=== PATIENT | female | born 1985 | race Caucasian/White ===

== ENCOUNTER → 2016-02-15 | Outpatient (CLI) | payer BC ==
[2016-02-15 13:43] LABS: BASO % 0.6 % (0.0-1.0); EOS # 0.2 K/mm3 (0.0-0.50); EOS % 3.6 % (0.0-3.0); LARGE UNSTAINED CELL # 0.1 K/mm3 (0.0-0.4); LARGE UNSTAINED CELL % 2.1 % (0.0-4.0); LYMPH % 17.4 % (24.0-44.0); MEAN CORPUSCULAR HEMOGLOBIN 32.1 pg (27.0-33.0); MEAN CORPUSCULAR HGB CONC 33.9 g/dl (32.0-36.5); MEAN CORPUSCULAR VOLUME 94.5 fl (80.0-96.0); MONO # 0.5 K/mm3 (0.0-0.8); NEUTROPHILS % 68.3 % (36.0-66.0); PLATELET COUNT, AUTOMATED 278 k/mm3 (150-450); RED CELL DISTRIBUTION WIDTH 11.9 % (11.5-14.5); WHITE BLOOD COUNT 5.9 K/mm3 (4.0-10.0)
[2016-02-15 14:08] LABS: HBsAg Prenatal NEGATIVE (NEGATIVE)
[2016-02-16 12:36] LABS: CONTROL LINE INT CTR LINE PRESENT; HIV SCRN NEGATIVE (NEGATIVE); HIV SCRN1 NEGATIVE (NEGATIVE)
== END ==
LOC: M SMT 09:22
PROVIDERS: ATTEND Advanced Practice Midwife
DX: Z34.81 Encounter for supervision of other normal pregnancy, first trimester (principal)

== ENCOUNTER → 2016-04-18 | Outpatient (REF) | payer BC | LOC: M LAB REF 12:43 | PROVIDERS: ATTEND Advanced Practice Midwife | DX: Z34.82 Encounter for supervision of other normal pregnancy, second trimester (principal) ==

== ENCOUNTER → 2016-04-25 | Outpatient (CLI) | payer BC ==
--- NOTE | 2016-04-25 09:02 | REP ---
Clinical: Anatomical evaluation. Comparison: None . Findings: Examination demonstrates a single live intrauterine in breech presentation. motion is identified by technologist. Placenta is noted anteriorly and grade zero without evidence for placenta previa or abruption. Amniotic fluid volume is normal. Cervix measures 3.9 cm in length and appears closed. No evidence for nuchal cord. Gestational age by LMP 19 weeks 6 days with ALYSSA 09/13/2016 . Gestational age by current measurements 19 weeks 6 days with ALYSSA 09/13/2016 . FHR equals 136 beats per minute. BPD 4.6 cm 20 weeks 0 days HC 17.5 cm 20 weeks 0 days AC 14.4 cm 19 weeks 5 days FL 3.3 cm 20 weeks 1 day HL 3.2 cm 20 weeks 4 days HC/AC ratio 1.22 Estimated weight 322 grams ( 48th percentile). Anatomical assessment demonstrates normal structures including cranium, choroid plexus, cavum, cerebellum/posterior fossa, facial features, lungs, four-chamber heart/ right ventricular outflow tract, diaphragm, stomach, cord insertion/three-vessel cord, kidneys/bladder, spine, and extremities. Impression: Single live intrauterine in breech presentation demonstrating appropriate interval growth. Anatomical assessment is essentially complete and normal with only the left cardiac ventricle outflow tract limited in evaluation. Signed by Tam Looney MD 04/25/2016 08:54 A
== END ==
LOC: M SMT 07:51
PROVIDERS: ATTEND Advanced Practice Midwife
DX: Z34.82 Encounter for supervision of other normal pregnancy, second trimester (principal)

== ENCOUNTER → 2016-05-23 | Outpatient (CLI) | payer BC ==
--- NOTE | 2016-05-23 09:16 | REP ---
Obstetric sonography: History: Supervision of , anatomy follow-up, left ventricular outflow tract. Comparison study April 25, 2016. Findings: Scanning through the gravid uterus demonstrates a viable single intrauterine gestation in a transverse lie, head to the maternal right. motion is observed and heart rate is recorded at 153 beats per minute. An anterior grade zero placenta is seen without evidence of abruption or previa. Amniotic fluid is subjectively normal. Closed cervical length is 5.0 cm. No extrauterine abnormality is observed. There has been appropriate interval growth. No anomaly is seen. The following anatomic structures are identified today and felt to be sonographically unremarkable: cranium, choroid plexus, cavum, cerebellum and posterior fossa, face and profile, lungs, four-chamber heart with left and right ventricular outflow tract views, diaphragm, left-sided stomach, abdominal wall cord insertion, three-vessel umbilical cord, kidneys and bladder, spine, upper and lower extremities. Biometry chart: BPD 6.0 cm 24 weeks 2 days Head circumference 21.5 cm 23 weeks 4 days Abdominal circumference 19.8 cm 24 weeks 3 days Femur length 4.4 cm 20 weeks 2 days Humeral length 4.1 cm 24 weeks 5 days Cerebellar diameter 2.6 cm 23 weeks 3 days HC/AC ratio normal 1.09. Cephalic index normal 0.78. Estimated weight 680 grams, 1 pound 7 ounces, 56th percentile for 23 weeks 6 days. Impression: Viable single intrauterine gestation at 23 weeks 5 days by today's composite sonographic criteria. Expected gestational age estimate based on prior sonography is 23 weeks 6 days. ALYSSA by prior sonography September 13, 2016. Signed by Sky Medina MD 05/23/2016 12:07 P
== END ==
LOC: M SMT 07:39
PROVIDERS: ATTEND Obstetrics & Gynecology
DX: Z34.82 Encounter for supervision of other normal pregnancy, second trimester (principal); Z3A.23 23 weeks gestation of pregnancy

== ENCOUNTER → 2016-06-02 | Outpatient (CLI) | payer BC ==
[2016-06-02 12:46] LABS: MEAN CORPUSCULAR HEMOGLOBIN 33.5 pg (27.0-33.0); MEAN CORPUSCULAR HGB CONC 34.6 g/dl (32.0-36.5); MEAN CORPUSCULAR VOLUME 96.9 fl (80.0-96.0); WHITE BLOOD COUNT 10.6 K/mm3 (4.0-10.0)
== END ==
LOC: M SMT 08:15
PROVIDERS: ATTEND Obstetrics & Gynecology
DX: Z34.82 Encounter for supervision of other normal pregnancy, second trimester (principal)

== ENCOUNTER → 2016-08-15 | Outpatient (REF) | payer BC ==
[~2016-08-15] MED LIST: COLA100C5 PO; IBUP-1022 PO; OXYC1TAB23 PO
== END ==
LOC: M LAB REF 17:15
PROVIDERS: ATTEND Obstetrics & Gynecology
DX: Z34.83 Encounter for supervision of other normal pregnancy, third trimester (principal)

== ENCOUNTER 2016-09-19 20:52 | Inpatient (IN) | payer BC ==
[~2016-09-19] VITALS: Ht 165.1 cm; Wt 79.5 kg
[2016-09-19 21:13] VITALS: BP 118/84
[2016-09-19 21:48] LABS: MEAN CORPUSCULAR HEMOGLOBIN 30.2 pg (27.0-33.0); MEAN CORPUSCULAR VOLUME 88.8 fl (80.0-96.0); RED CELL DISTRIBUTION WIDTH 13.8 % (11.5-14.5); WHITE BLOOD COUNT 11.4 K/mm3 (4.0-10.0)
[2016-09-19] MEDS ORDERED: miSOPROStol 50 MCG 1/2 TAB (S0191) PO SCH (22:00)
[2016-09-19 22:08] VITALS: BP 120/79
--- NOTE | 2016-09-19 23:08 | HPE ---
DATE OF ADMISSION: 09/19/2016 Laurie is a 31-year-old 1, para 0 at 40-6/7 weeks gestation with an EDC of 09/13/2016 based on last menstrual period confirmed by first trimester ultrasound. She presents to labor and delivery today for induction of labor due to post-term . She denies any regular contractions, vaginal bleeding and leakage of fluid. Her fetus has been active. care was initiated at a woman's perspective in the first trimester. course has been uncomplicated. OBSTETRICAL HISTORY: Primigravida. OB LABS: Blood type B+, antibody screen negative, rubella immune, VDRL nonreactive. Urine culture: No growth. Hep B surface antigen: Negative. HIV negative. Hep C antibody negative. Gonorrhea and chlamydia negative. She did decline all genetic serum screening. Her gestational diabetic screening was normal at 86 and her GBS is negative. PAST MEDICAL HISTORY: Abnormal Pap smear. Childhood varicella. Seasonal allergies. SURGERIES: Colposcopy. FAMILY HISTORY: Hypothyroidism. SOCIAL HISTORY: The patient is . She is a nonsmoker. Denies alcohol and drug use. No history of any sexually transmitted infections. She denies history of abuse, physical, sexual and emotional. ALLERGIES: Seasonal. No known drug allergies. CURRENT MEDICATIONS: Include vitamin. OBJECTIVE: Temperature 97.9, pulse 75, respirations 18, blood pressure 118/84. She is alert and oriented x3. She is in no apparent distress, smiling and talkative. heart rate is 135 with moderate variability, positive accelerations observed. No decelerations noted. Her abdomen is gravid, cephalic presentation. Estimated weight 7-1/2 pounds. Sterile vaginal examination : Fingertip dilated, 50% effaced. ASSESSMENT: Intrauterine at 40-6/7 weeks. heart rate category one, post-term . PLAN: Admit the patient to labor and delivery. Labs as ordered. Out of bed ad audie. Regular diet. I will start misoprostol 50 mcg by mouth every 4 hours for cervical ripening per consult with Dr. Solares. I did review risks to induction including increased risk for section, intolerance to labor and failed induction. The patient has had all her questions answered and does desire to proceed with induction. I do anticipate cervical ripening. MTDD
[2016-09-19 23:45] VITALS: BP 118/87
[2016-09-20] VITALS (49 sets, daily range): BP systolic 98–157; BP diastolic 55–92
[2016-09-20] MEDS ORDERED: PROMETHAZINE INJ 25 MG/ML VIAL (J2550) IV ONE (04:15)
[2016-09-20] MEDS ORDERED: BUTORPHANOL 2 MG/ML INJ (J0595) IV ONE (04:15)
[2016-09-20] MEDS ORDERED: LR 1,000 ML IV SCH ×2 (04:59→19:55)
[2016-09-20] MEDS ORDERED: OXYTOCIN DRIP 30 UNITS in APPROPRIATE DILUENT 1 EA IV SCH ×4 (05:00→19:55)
[2016-09-20] MEDS ORDERED: TERBUTALINE SULFATE 1 MG/ML VIAL (J3105) As Ordered ONE (07:48)
[2016-09-20] MEDS ORDERED: FENTANYL 2MCG/ML ROPIVACAINE 0.2% IN 0.9% NACL 200ML IVBAG As Ordered ONE (08:12)
[2016-09-20] MEDS ORDERED: FENTANYL/ROPIVACAINE/NACL BAG 200 ML EPIDURAL SCH (10:00)
[2016-09-20] MEDS ORDERED: EPIDURAL/PCA KEYS XX PRN (10:00)
[2016-09-20] MEDS ORDERED: EPIDURAL COMMENT XX SCH (10:00)
[2016-09-20] MEDS ORDERED: NALOXONE INJ 0.4 MG/1 ML VIAL (J2310) IV PRN ×3 (10:00→19:05)
[2016-09-20] MEDS ORDERED: ePHEDrine SULFATE 25 MG/5 ML(5MG/ML) SYRINGE IV PRN (10:00)
[2016-09-20] MEDS ORDERED: diphenhydrAMINE INJ 50MG/ML VIAL (J1200) IV PRN (10:00)
[2016-09-20] MEDS ORDERED: LACTATED RINGER'S 1000 ML IV PRN (10:00)
[2016-09-20] MEDS ORDERED: ONDANSETRON 4MG/2ML VIAL (J2405) IV PRN ×4 (10:00→20:30)
[2016-09-20] MEDS ORDERED: REFRIGERATOR IV KEYS XX PRN (10:00)
[2016-09-20] MEDS ORDERED: TERBUTALINE SULFATE 1 MG/ML VIAL (J3105) SC ONE (10:45)
[2016-09-20] MEDS ORDERED: BICITRA 30ML SOLN UDC As Ordered ONE (18:29)
[2016-09-20] MEDS ORDERED: BICITRA 30ML SOLN UDC PO ONE (18:30)
[2016-09-20] MEDS ORDERED: AZITHROMYCIN INJ 500 MG, VIAL MATE ADAPTER 1 EACH in D5W 250 ML IV ONE (18:30)
[2016-09-20] MEDS ORDERED: AZITHROMYCIN INJ 500MG VIAL (J0456) As Ordered ONE (18:30)
[2016-09-20] MEDS ORDERED: ceFAZolin 2 GM/D5W 50 ML IV BAG (J0690) As Ordered ONE (18:30)
[2016-09-20] MEDS ORDERED: OXYTOCIN INJ 10 UNITS/ML VIAL (J2590) As Ordered ONE (18:45)
[2016-09-20] MEDS ORDERED: ONDANSETRON 4MG/2ML VIAL (J2405) As Ordered ONE (18:50)
[2016-09-20] MEDS ORDERED: LIDOCAINE PRES-FREE 2% 10ML AMP As Ordered ONE (18:56)
[2016-09-20] MEDS ORDERED: MORPHINE PRES-FREE INJ 10 MG/10 ML VIAL (J2274) As Ordered ONE (19:00)
[2016-09-20] MEDS ORDERED: NALBUPHINE HCL 10 MG/ML AMP (J2300) IV PRN ×2 (19:05→20:30)
[2016-09-20] MEDS ORDERED: METOCLOPRAMIDE INJ 10MG/2ML VIAL (J2765) IV PRN (19:05)
[2016-09-20] MEDS ORDERED: dexameTHASONE 4 MG/ML 1ML VIAL (J1100) As Ordered ONE (19:08)
[2016-09-20] MEDS ORDERED: KETOROLAC 60 MG/2 ML VIAL (J1885) As Ordered ONE (19:11)
[2016-09-20 19:13] LABS: CORD GAS ABE A -8.5; CORD GAS HCO3 A 20.9 MEQ/L; CORD GAS O2 SAT A < 15.0 %; CORD GAS PCO2 A 57.1 mmHg; CORD GAS PH A 7.182 UNITS; CORD GAS PO2 A 11.4 mmHg; CORD GAS TCO2 A 22.7 MEQ/L
[2016-09-20 19:15] LABS: CORD GAS ABE V -6.1; CORD GAS HCO3 V 20.7 MEQ/L; CORD GAS O2 SAT V 44.3 %; CORD GAS PCO2 V 44.8 mmHg; CORD GAS PH V 7.282 UNITS; CORD GAS PO2 V 20.7 mmHg; CORD GAS SBC V 18.1 MEQ/L
[2016-09-20] MEDS ORDERED: MEASLES,MUMPS,RUBELLA VACCINE INJ (MMR-II) (90707) SC SCH (20:00)
[2016-09-20] MEDS ORDERED: PERCOCET 5MG/325MG TAB PO PRN ×2 (20:00)
[2016-09-20] MEDS ORDERED: PROMETHAZINE 25 MG TAB PO PRN (20:00)
[2016-09-20] MEDS ORDERED: RHOGAM 300 MCG (1500 IU) INJ (J2790) IM SCH (20:00)
[2016-09-20] MEDS ORDERED: fentaNYL 100 MCG/2 ML INJECTION (J3010) IV PRN (20:30)
[2016-09-20] MEDS: DOCUSATE SODIUM 100 MG CAP PO SCH (23:04)
[2016-09-21] VITALS (8 sets, daily range): BP systolic 92–115; BP diastolic 50–67
[2016-09-21] MEDS: KETOROLAC 30 MG/ML VIAL (J1885) IV SCH ×4 (02:56→20:42)
[2016-09-21 07:21] LABS: MEAN CORPUSCULAR HEMOGLOBIN 29.3 pg (27.0-33.0); MEAN CORPUSCULAR HGB CONC 33.7 g/dl (32.0-36.5); RED CELL DISTRIBUTION WIDTH 13.6 % (11.5-14.5); WHITE BLOOD COUNT 19.5 K/mm3 (4.0-10.0)
[2016-09-21] MEDS: PRENATAL VITAMINS CHEWABLE TABLET PO SCH (07:45)
[2016-09-21] MEDS: DOCUSATE SODIUM 100 MG CAP PO SCH ×2 (07:45→20:42)
[2016-09-21] MEDS ORDERED: OXYC1TAB23 PO (08:19)
[2016-09-21] MEDS ORDERED: IBUP-1022 PO (08:20)
[2016-09-21] MEDS ORDERED: COLA100C5 PO (08:21)
[2016-09-22] MEDS ORDERED: IBUPROFEN 800 MG TAB PO SCH (04:00)
[2016-09-22 06:30] VITALS: BP 102/55
[2016-09-22] MEDS: PRENATAL VITAMINS CHEWABLE TABLET PO SCH (07:38)
[2016-09-22] MEDS: DOCUSATE SODIUM 100 MG CAP PO SCH (07:39)
[2016-09-22] MEDS ORDERED: OXYC1TAB23 PO (09:30)
[2016-09-22] MEDS ORDERED: COLA100C5 PO (09:30)
--- NOTE | 2016-10-01 10:45 | DSES ---
DATE OF ADMISSION: 09/19/2016 DATE OF DISCHARGE: 09/22/2016 ADMITTING DIAGNOSIS: Induction of labor at 40 weeks 6 days gestation, post term . DISCHARGE DIAGNOSIS: Primary low transverse section, single liveborn delivered via section. INDICATION: Arrest of descent. DISCHARGE SUMMARY: A 31-year-old, 1, now para 1 admitted on 09/19/2016 at 40 weeks 6 days gestation for induction of labor. She had spontaneous rupture of membranes at 1238 hours on 09/20/2016. She started pushing at 1628 hours. After two hours of maternal pushing efforts, there was no descent of the presenting vertex. Occiput posterior/asynclitic position was noted. The patient was counseled regarding this assessment and was offered a primary section for arrest of descent given that there was no change in station after excellent maternal pushing effort. The patient then elected to proceed with a primary low transverse section. The delivery was uncomplicated. The patient's intraoperative and postoperative courses were uncomplicated. By postoperative day number three, the patient was meeting all discharge criteria. Her pain was well controlled on oral pain medications. She was ambulating without assistance, voiding spontaneously, tolerating a regular diet, and her lochia/bleeding was minimal. PHYSICAL EXAMINATION: On the date of discharge, vital signs: Temperature was 98.8, pulse was 76, respiratory rate was 18, blood pressure was 102/55, and pulse oximetry was 97% on room air. HEART: Regular rate and rhythm with no murmurs, gallops or rubs. LUNGS: Clear to auscultation bilaterally. No wheezes, crackles, rales or rhonchi. ABDOMEN: Soft, nondistended. Appropriately tender. Normoactive bowel sounds. Fundus firm at 2 cm below the umbilicus. INCISION: dry, intact, clean without surrounding erythema or induration. EXTREMITIES: Non-edematous, nontender. Negative Homans sign bilaterally. ASSESSMENT AND PLAN: This is 31-year-old 1, now para 1 status post primary low transverse delivery secondary to arrest of descent during labor on 09/20/2016, now postoperative day #3. Hemodynamically stable. Afebrile with good pain control. Meeting all discharge criteria. 1. Routine infectious, fever, pain and bleeding precautions reviewed. 2. Surgical wound/incision care/precautions reviewed. DISCHARGE MEDICATIONS: - Percocet one tablet by mouth every 4 hours as needed for pain, #30 tablets dispensed - ibuprofen 600 mg by mouth every six hours as needed for pain - Colace 100 mg every 12 hours as needed for constipation Outpatient followup in 1 to 2 weeks for routine incision, postoperative check. My preceptor for this patient encounter was Dr. Kaleb Umanzor. The preceptor was physically present in the building during the encounter and was fully available. As needed, all aspects of the patient interview, examination, medical decision making process, and medical care plan development were reviewed and approved by the preceptor. The preceptor is aware and concurs with the plan as stated in the body of this note and will attest to such by his/her cosignature. ANDREW
== END 2016-09-22 15:20 | disposition home or self-care (01) | DRG 540 ==
LOC: M LDI 20:52 → M OBS 09-20 23:25
PROVIDERS: ADMIT Advanced Practice Midwife; ATTEND Advanced Practice Midwife
PROC: 3E0DXGC Introduction of Other Therapeutic Substance into Mouth and Pharynx, External Approach (ICD-10-PCS; 2016-09-19)
PROC: 10D00Z1 Extraction of Products of Conception, Low, Open Approach (ICD-10-PCS; principal; 2016-09-20 18:33)
DX: O48.0 Post-term pregnancy (principal); O32.4XX0 Maternal care for high head at term, not applicable or unspecified; Z37.0 Single live birth; Z3A.40 40 weeks gestation of pregnancy

== ENCOUNTER → 2018-05-21 | Outpatient (CLI) | payer BC | LOC: M LAB 09:41 | PROVIDERS: ATTEND Advanced Practice Midwife | DX: O20.0 Threatened abortion (principal); Z3A.00 Weeks of gestation of pregnancy not specified ==

== ENCOUNTER → 2018-05-23 | Outpatient (CLI) | payer BC | LOC: M LAB 06:38 | PROVIDERS: ATTEND Obstetrics & Gynecology | DX: O20.0 Threatened abortion (principal); Z3A.00 Weeks of gestation of pregnancy not specified ==

== ENCOUNTER → 2018-05-30 | Outpatient (CLI) | payer BC | LOC: M LAB 06:43 | PROVIDERS: ATTEND Obstetrics & Gynecology | DX: O20.0 Threatened abortion (principal); Z3A.00 Weeks of gestation of pregnancy not specified ==

== ENCOUNTER → 2018-08-20 | Outpatient (CLI) | payer BC ==
[2018-08-20 18:19] LABS: BASO # 0.1 10^3/uL (0.0-0.2); EOS # 0.3 10^3/uL (0.0-0.50); EOS % 4.3 % (0.0-3.0); HEMATOCRIT 41.4 % (36.0-47.0); HEMOGLOBIN 14.1 g/dl (12.0-15.5); LYMPH # 1.5 10^3/uL (1.5-4.5); LYMPH % 24.6 % (24.0-44.0); MEAN CORPUSCULAR HEMOGLOBIN 31.4 pg (27.0-33.0); MEAN CORPUSCULAR HGB CONC 34.1 g/dl (32.0-36.5); MEAN CORPUSCULAR VOLUME 92.2 fl (80.0-96.0); MONO # 0.8 10^3/uL (0.0-0.8); NEUTROPHILS # 3.5 10^3/uL (1.8-7.7); NEUTROPHILS % 56.9 % (36.0-66.0); PLATELET COUNT, AUTOMATED 294 10^3/uL (150-450); RED BLOOD COUNT 4.49 10^6/uL (4.00-5.40); WHITE BLOOD COUNT 6.1 10^3/uL (4.0-10.0)
[2018-08-20 18:55] LABS: CHLAMYDIA DNA AMPLIFICATION NEGATIVE (NEGATIVE); GC DNA AMPLIFICATION NEGATIVE (NEGATIVE)
[2018-08-21 10:53] LABS: HEPATITIS C VIRUS ABY INDEX 0.1 INDEX (<0.8); HIV 1&2 SCREEN CENTAUR NEGATIVE (NEGATIVE); RUBELLA IgG QUALITATIVE IMMUNE (IMMUNE)
== END ==
LOC: M SMT 08:19
PROVIDERS: ATTEND Advanced Practice Midwife
DX: Z34.81 Encounter for supervision of other normal pregnancy, first trimester (principal); Z3A.08 8 weeks gestation of pregnancy

== ENCOUNTER → 2018-11-12 | Outpatient (CLI) | payer BC ==
--- NOTE | 2018-11-12 13:15 | REP ---
OB ULTRASOUND: Real-time sonographic evaluation of the gravid uterus is performed. There is a single living intrauterine gestation. Estimated gestational age 20 weeks, EDC 04/01/2019. Today's measurements indicate appropriate growth. BPD 49 mm = 20 weeks 6 days, 74th percentile HC 178 mm = 20 weeks 2 days, 59th percentile AC 166 mm = 21 weeks 4 days, 84th percentile Femur length 32 mm = 19 weeks 6 days, 45th percentile HC/AC ratio 1.08 within normal range. Estimated weight 374 grams, 74th percentile. SEEN/GROSSLY UNREMARKABLE Lateral ventricles Yes Posterior fossa Yes Upper lip No Four-chamber heart Yes LVOT Yes RVOT Yes Stomach Yes Cord insertion Yes Three vessel cord Yes Kidneys No Bladder Yes Spine No position: Transverse with head toward the maternal left side. heart rate 140 beats per minute. Placenta: Anterior and grade 0 with no previa or abruption. Amniotic fluid: Within normal limits. Cervix is closed and measures 5.1 cm in length. Electronically Signed by Dewayne Warner MD 11/12/2018 11:35 P
== END ==
LOC: M RAD 09:50
PROVIDERS: ATTEND Advanced Practice Midwife
DX: O34.219 Maternal care for unspecified type scar from previous cesarean delivery (principal)

== ENCOUNTER → 2018-12-24 | Outpatient (CLI) | payer BC ==
[2018-12-24 14:41] LABS: HEMATOCRIT 33.8 % (36.0-47.0); HEMOGLOBIN 11.3 g/dl (12.0-15.5); MEAN CORPUSCULAR HEMOGLOBIN 31.8 pg (27.0-33.0); MEAN CORPUSCULAR HGB CONC 33.4 g/dl (32.0-36.5); MEAN CORPUSCULAR VOLUME 95.2 fl (80.0-96.0); PLATELET COUNT, AUTOMATED 340 10^3/uL (150-450); RED BLOOD COUNT 3.55 10^6/uL (4.00-5.40); WHITE BLOOD COUNT 10.1 10^3/uL (4.0-10.0)
== END ==
LOC: M SMT 10:32
PROVIDERS: ATTEND Obstetrics & Gynecology
DX: Z34.82 Encounter for supervision of other normal pregnancy, second trimester (principal)

== ENCOUNTER → 2018-12-24 | Outpatient (CLI) | payer BC ==
--- NOTE | 2018-12-24 09:09 | REP ---
OB ULTRASOUND: Real-time sonographic evaluation of the gravid uterus is performed. There is a single living intrauterine gestation. The estimated gestational age is 26 weeks 0 days. EDC04/01/2019. Today's measurements indicate appropriate growth. BPD 70 mm = 28 weeks 1 da, 93rd percentile. HC 251 mm = 27 weeks 2 days, 78th percentile. AC 228 mm = 27 weeks 1 day, 73rd percentile. Femur length 48 mm = 26 weeks 1 days, at the 54th percentile. HC/AC ratio 1.16 within normal range. Estimated weight 997 grams at the 67th percentile. Cervix is closed measures 3.5 cm in length. heart rate 160 beats per minute. Today's measurements indicate appropriate growth. SEEN/GROSSLY UNREMARKABLE Lateral ventricles Yes Posterior fossa Yes Upper lip Yes Four-chamber heart No LVOT No RVOT No Stomach Yes Cord insertion No Three vessel cord Yes Kidneys Yes Bladder Yes Spine Yes position: Vertex. Placenta: Anterior and grade 0 with no previa or abruption. Amniotic fluid within normal limits. Electronically Signed by Dewayne Warner MD 12/25/2018 08:37 P
== END ==
LOC: M RAD 06:53
PROVIDERS: ATTEND Obstetrics & Gynecology
DX: Z34.82 Encounter for supervision of other normal pregnancy, second trimester (principal)

== ENCOUNTER → 2019-03-05 | Outpatient (REF) | payer BC ==
[~2019-03-05] MED LIST changes: +DOCU100C16 PO; +IBUP80TA PO; +PERCOCET PO; +PRENTAB9 PO
== END ==
LOC: M SMT 17:11
PROVIDERS: ATTEND Specialist
DX: Z34.83 Encounter for supervision of other normal pregnancy, third trimester (principal); Z36.85 Encounter for antenatal screening for Streptococcus B

== ENCOUNTER 2019-03-31 18:03 | Inpatient (IN) | payer BC ==
[~2019-03-31] VITALS: Ht 165.1 cm; Wt 83.3 kg
[2019-03-31] VITALS (13 sets, daily range): BP systolic 106–132; BP diastolic 75–90
[~2019-03-31 18:03] MED LIST changes: -DOCU100C16 PO; -IBUP80TA PO; -PERCOCET PO; -PRENTAB9 PO
[2019-03-31] MEDS ORDERED: PRENTAB9 PO (18:28)
[2019-03-31] MEDS ORDERED: PENICILLIN G POTASSIUM IV 5 MU in D5W MINI-BAG PLUS 100 ML IV STA (18:36)
[2019-03-31] MEDS ORDERED: LR 1,000 ML IV SCH (18:45)
[2019-03-31 19:08] LABS: HEMATOCRIT 33.5 % (36.0-47.0); HEMOGLOBIN 10.9 g/dl (12.0-15.5); MEAN CORPUSCULAR HEMOGLOBIN 26.8 pg (27.0-33.0); MEAN CORPUSCULAR HGB CONC 32.5 g/dl (32.0-36.5); MEAN CORPUSCULAR VOLUME 82.5 fl (80.0-96.0); PLATELET COUNT, AUTOMATED 332 10^3/uL (150-450); RED BLOOD COUNT 4.06 10^6/uL (4.00-5.40); WHITE BLOOD COUNT 12.3 10^3/uL (4.0-10.0)
[2019-03-31] MEDS ORDERED: BUTORPHANOL 2 MG/ML INJ (J0595) As Ordered ONE (20:41)
[2019-03-31] MEDS ORDERED: PROMETHAZINE INJ 25 MG/ML VIAL (J2550) As Ordered ONE (20:42)
[2019-03-31] MEDS ORDERED: BUTORPHANOL 2 MG/ML INJ (J0595) IV ONE (20:45)
[2019-03-31] MEDS ORDERED: PROMETHAZINE INJ 25 MG/ML VIAL (J2550) IM ONE (20:45)
[2019-03-31] MEDS ORDERED: FENTANYL 2MCG/ML ROPIVACAINE 0.2% IN 0.9% NACL 100ML IVBAG As Ordered ONE (21:00)
--- NOTE | 2019-03-31 21:49 | HPEPDOC ---
Obstetrical History & Physical General Date of Admission Mar 31, 2019 at 18:20 History of Present Illness 34-year-old 3, para 1 presents at at 39 weeks 6 days estimated gestational age with complaints of leakage of clear fluid occurred approximately 5 PM this afternoon. Her course is been unremarkable. She initiated care first trimesters been appropriate throughout. Her history is significant for primary section. 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 BREAST: . ABDOMEN: Gravid and non-tender to touch. FETUS: Is vertex (VTX) by sterile vaginal examination (SVE), fetus is vertex (VTX) by Andre. HEART RATE: Regular rate and rhythm. LUNGS: Clear to auscultation (CTA). Laboratory Data 24H LABS Laboratory Tests 2 03/31/19 18:22: Serology Scanned Report Hepatitis B Testing 03/31/19 18:57: Nucleated Red Blood Cells % (auto) 0.0 CBC/BMP Laboratory Tests 03/31/19 18:57 Pertinent Laboratoy Data Blood Type: B+ RBC Antibody Screen: Negative HIV: Negative Hepatitis B: Negative Rapid Plasma Reagin: Nonreactive Rubella: Immune Chlamydia/Gonorrhea: Negative Group B Streptococcus: Positive Anatomy Ultrasound Placenta Location: Anterior Vaginal Examination Dilation: 5 cm Effacement: 80% Station: -1 Cervical Consistency: Soft Cervical Position: Lateral Presentation: Cephalic presentation Assessment Heart Rate (FHR): 140 Variability: Moderate Accelerations: Positive Tocometer Contractions: Yes Frequency: regular Assessment/Plan Assessment 34-year-old 3, para 1 at 39 weeks 6 days estimated gestational age, spontaneous rupture membranes. Reassuring status. History section Plan Admit and orient. Traffic Rate Computer and consent. Desires trial labor after section has been counseled Group B Streptococcus (GBS) positive. Labs and intravenous (IV) per unit protocol. Counseled on Pitocin and induction of labor (IOL). Anticipate (). C-S as appropriate. MELVIN ORDAZ MD. Mar 31, 2019 21:49
[2019-03-31] MEDS ORDERED: LACTATED RINGER'S 1000 ML IV PRN (21:50)
[2019-03-31] MEDS: FENTANYL/ROPIVACAINE/NACL BAG 100 ML EPIDURAL SCH (21:50)
[2019-03-31] MEDS ORDERED: EPIDURAL/PCA KEYS XX PRN (21:50)
[2019-03-31] MEDS ORDERED: ePHEDrine SULFATE 25 MG/5 ML(5MG/ML) SYRINGE IV PRN (21:50)
[2019-03-31] MEDS ORDERED: EPIDURAL COMMENT XX SCH (21:50)
[2019-03-31] MEDS ORDERED: diphenhydrAMINE INJ 50MG/ML VIAL (J1200) IV PRN (21:50)
[2019-03-31] MEDS ORDERED: REFRIGERATOR IV KEYS XX PRN (21:50)
[2019-03-31] MEDS ORDERED: NALOXONE INJ 0.4 MG/1 ML VIAL (J2310) IV PRN (21:50)
[2019-03-31] MEDS ORDERED: ONDANSETRON 4MG/2ML VIAL (J2405) IV PRN (21:50)
[2019-03-31] MEDS: PENICILLIN G POTASSIUM IV 2.5 MU in IV 1 EA IV SCH (23:04)
[2019-04-01] VITALS (20 sets, daily range): BP systolic 97–121; BP diastolic 57–78
[2019-04-01] MEDS ORDERED: CALCIUM CARBONATE 500 MG CHEW U/D PO ONE (00:45)
[2019-04-01] MEDS: PENICILLIN G POTASSIUM IV 2.5 MU in IV 1 EA IV SCH ×2 (03:06→07:02)
[2019-04-01] MEDS ORDERED: OXYTOCIN 30 UNITS IN 0.9% NaCl 500ML IV BAG (J2590) As Ordered ONE ×2 (06:20→09:15)
[2019-04-01] MEDS ORDERED: OXYTOCIN DRIP 30 UNITS in IV 1 EA IV SCH ×2 (06:30→09:00)
[2019-04-01] MEDS: FENTANYL/ROPIVACAINE/NACL BAG 100 ML EPIDURAL SCH (07:00)
[2019-04-01] MEDS ORDERED: AZITHROMYCIN INJ 500MG VIAL (J0456) As Ordered ONE (07:23)
[2019-04-01] MEDS ORDERED: BICITRA 30ML SOLN UDC As Ordered ONE (07:23)
[2019-04-01] MEDS ORDERED: ceFAZolin 2 GM/D5W 50 ML IV BAG (J0690 PER 500MG) As Ordered ONE (07:23)
[2019-04-01] MEDS ORDERED: BICITRA 30ML SOLN UDC PO ONE (07:30)
[2019-04-01] MEDS ORDERED: ceFAZolin SOD 2 GM in IV 1 EA IV ONE (07:30)
[2019-04-01] MEDS ORDERED: AZITHROMYCIN INJ 500 MG, VIAL MATE ADAPTER 1 EACH in D5W 250 ML IV ONE (07:30)
--- NOTE | 2019-04-01 07:30 | IPNPDOC ---
Obstetrical Progress Note Date of Service Apr 01, 2019 Subjective patient pushing for the last 2hrs with no decent. counseled regarding diagnosis and plan for repeat c/s. Objective Vital Signs Date Time Temp Pulse Resp B/P (MAP) Pulse Ox O2 Delivery O2 Flow Rate FiO2 04/01/19 02:44 91 101/67 (78) 04/01/19 01:43 98.8 03/31/19 23:01 16 Sterile Vaginal Examination Dilation: complete Effacement (%): 100% Station: -1, 0 Assessment and Plan Anticipate: Section MELVIN ORDAZ MD. Apr 01, 2019 07:30
[2019-04-01] MEDS ORDERED: PHENYLephrine HCL 500 MCG/5 ML (100MCG/ML) SYRINGE (J2370) As Ordered ONE ×3 (07:43→08:24)
[2019-04-01] MEDS ORDERED: ePHEDrine SULFATE 25 MG/5 ML(5MG/ML) SYRINGE As Ordered ONE (07:43)
[2019-04-01] MEDS ORDERED: ONDANSETRON 4MG/2ML VIAL (J2405) As Ordered ONE (07:49)
[2019-04-01] MEDS ORDERED: dexameTHASONE 4 MG/ML 1ML VIAL (J1100) As Ordered ONE (07:49)
[2019-04-01] MEDS ORDERED: LIDOCAINE 2% W/EPIN INJ 20ML **PRES FREE As Ordered ONE (08:00)
[2019-04-01] MEDS ORDERED: SODIUM BICARBONATE 8.4% INJ 50MEQ 50 ML VIAL As Ordered ONE (08:00)
[2019-04-01] MEDS ORDERED: MORPHINE PRES-FREE INJ 10 MG/10 ML VIAL (J2274) As Ordered ONE (08:02)
[2019-04-01] MEDS ORDERED: OXYTOCIN INJ 10 UNITS/ML VIAL (J2590) As Ordered ONE ×2 (08:16→08:24)
[2019-04-01 08:30] LABS: CORD GAS ABE V -9.4; CORD GAS PCO2 V 56.4 mmHg; CORD GAS PH V 7.168 UNITS; CORD GAS PO2 V 17.8 mmHg; CORD GAS SBC V 15.5 MEQ/L; CORD GAS TCO2 V 21.7 MEQ/L
[2019-04-01] MEDS ORDERED: ONDANSETRON 4 MG ORAL DISINTEGRATING TAB (Q0162 PER 1MG) PO PRN (09:00)
[2019-04-01] MEDS ORDERED: PERCOCET 5MG/325MG TAB PO PRN ×3 (09:00→09:45)
[2019-04-01] MEDS ORDERED: MOM 30ML SUSPENSION UDC PO PRN (09:00)
--- NOTE | 2019-04-01 09:07 | ROOPDOC ---
[facility] Report Of Operation Report of Operation DATE OF OPERATION: 04/01/2019 SURGEON: Mer Solares M.D. SLAG DUMPER: Misty Mccrary CNM ANESTHESIA: Epidural ESTIMATED BLOOD LOSS:. 500ml URINE OUTPUT: 100ml INTRAVENOUS FLUIDS: 1 L LR PREOPERATIVE ANTIBIOTICS:. 2 g of Ancef and 500 mg azithromycin OPERATIVE FINDINGS: Liveborn female , Apgars 7 and 8. Weight was 7 lbs. 14 oz. SPECIMENS:. Cord gases INDICATIONS FOR PROCEDURE: 1. Arrest of descent. 2. Failed induction. 3. Persistent category 2 tracing DESCRIPTION OF PROCEDURE: After informed consent was obtained and written consent was reviewed. The patient was brought to the operating room. She was then placed in the supine position with a left lateral tilt. Ozuna catheter was previously placed and to gravity. Patient was then prepped and draped in the normal sterile fashion. A timeout operating room was performed identifying the patient, procedure be performed as well as drug allergies. Anesthesia was tested and deemed to be adequate. Pfannenstiel skin incision was made and this was carried down to the underlying rectus fascia. The fascia was then scored and this incision was extended bilaterally. The fascia was then dissected off the underlying rectus muscle superiorly and inferiorly. The rectus muscles were then in the midline. The peritoneum is then entered. Vesicouterine peritoneum was then tented and excised and a bladder flap was created. Mobius retractor was then placed. Next, a curvilinear incision was then made in the lower uterine segment. Amniotomy was performed, productive, clear fluid. The head was brought to the level of the incision atraumatically and delivered along the shoulders and corpus. The cord was clamped 2. The infant was brought over to the warmer with a good cry. Placenta was drained and delivered grossly intact. The uterus was cleared of all clots and debris and the uterine incision was then closed in 2 layers using 0 Vicryl, first in a running locking fashion followed by second layer for imbrication. The abdomen suctioned. Surgical sites reinspected and noted be hemostatic. The retractor was then removed. The anterior peritoneum was then reapproximated with 3-0 Vicryl. The rectus muscles were reapproximated 3-0 Vicryl. The fascia was then closed using 0 Vicryl in a running nonlocking fashion. The subcutaneous tissues was then irrigated and carreon ctioned. Subcutaneous tissue was reapproximated using 3-0 Vicryl. Several subdermal stitch is placed using 3-0 Vicryl and the skin was closed with 4-0 Monocryl and subarticular fashion. This incision was then cleaned and dried and was dressed. The patient was then taken to recovery in stable condition. All counts were correct. The couples decided to maintain the daughterNita My surgical orderly Misty Mccrary played in an essential roll during the operation. They assisted with tissue identification retraction, delivery of the , as well as wound closure. MER SOLARES MD. Apr 01, 2019 09:07
[2019-04-01] MEDS ORDERED: NALOXONE INJ 0.4 MG/1 ML VIAL (J2310) IV PRN ×2 (09:45)
[2019-04-01] MEDS ORDERED: NALBUPHINE HCL 10 MG/ML AMP (J2300) IV PRN (09:45)
[2019-04-01] MEDS ORDERED: diphenhydrAMINE INJ 50MG/ML VIAL (J1200) IV PRN (09:45)
[2019-04-01] MEDS ORDERED: LR 1,000 ML IV SCH (09:45)
[2019-04-01] MEDS ORDERED: fentaNYL 100 MCG/2 ML INJECTION (J3010) IV PRN (09:45)
[2019-04-01] MEDS ORDERED: ONDANSETRON 4MG/2ML VIAL (J2405) IV PRN (09:45)
[2019-04-01] MEDS ORDERED: METOCLOPRAMIDE INJ 10MG/2ML VIAL (J2765) IV PRN (09:45)
[2019-04-01] MEDS ORDERED: RHOGAM 300 MCG (1500 IU) INJ (J2790) IM SCH (10:00)
[2019-04-01] MEDS ORDERED: MEASLES,MUMPS,RUBELLA VACCINE INJ (MMR-II) (90707) SC SCH (10:00)
[2019-04-01] MEDS: LR 1,000 ML IV SCH ×2 (11:48→22:12)
[2019-04-01] MEDS: KETOROLAC 30 MG/ML VIAL (J1885) IV SCH ×3 (11:49→22:12)
[2019-04-01] MEDS: DOCUSATE SODIUM 100 MG CAP PO SCH ×2 (11:59→22:12)
[2019-04-01] MEDS: FERROUS SULFATE 325MG TAB PO SCH (11:59)
[2019-04-01] MEDS: PRENATAL VITAMINS CHEWABLE TABLET PO SCH (12:00)
[2019-04-02] VITALS (7 sets, daily range): BP systolic 94–121; BP diastolic 53–72
[2019-04-02] MEDS: LR 1,000 ML IV SCH (02:00)
[2019-04-02] MEDS: IBUPROFEN 800 MG TAB PO SCH ×3 (06:37→21:17)
[2019-04-02 07:01] LABS: MEAN CORPUSCULAR HEMOGLOBIN 27.2 pg (27.0-33.0); MEAN CORPUSCULAR HGB CONC 32.6 g/dl (32.0-36.5); MEAN CORPUSCULAR VOLUME 83.3 fl (80.0-96.0); PLATELET COUNT, AUTOMATED 248 10^3/uL (150-450); RED BLOOD COUNT 3.24 10^6/uL (4.00-5.40); WHITE BLOOD COUNT 13.6 10^3/uL (4.0-10.0)
[2019-04-02 07:09] LABS: HEMOGLOBIN 8.8 g/dl (12.0-15.5)
--- NOTE | 2019-04-02 07:37 | IPNPDOC ---
Progress Note Date of Service: Apr 02, 2019 Day#: 1 Progress Note SUBJECT: Laurie is a 34-year-old 3 now Para 2-0-0-2 status post repeat section for arrest of descent and persistent category 2 tracing at 40- 0/7 weeks' on 04/01/2019 of a viable female 7 pounds 14 ounces (3572 grams) doing well postop day # 1. She has been ambulating, voiding spontaneously without issue and tolerating regular diet. Breast feeding without issue. Reports lochia is like a normal period. Reports pain is controlled. OBJECTIVE: VITAL SIGNS: Within normal limits, afebrile. Alert and oriented times three. Breath sounds clear to auscultation. Heart rate: Regular rate and rhythm, no murmurs, rubs or gallops. Abdomen: Fundus firm at U-1. Soft, appropriately tender. Incision dressing intact, scant drainage noted. Minimal lochia. ASSESSMENT: Post-op day 1. PLAN: 1. Discharge to home tomorrow 2. Tylenol and Motrin for pain. 3. Encourage breast feeding and ambulation. 4. Routine post-op care. VS, I&O, [facility] V[facility] Signs/I&O Vital Signs Date Time Temp Pulse Resp B/P (MAP) Pulse Ox O2 Delivery O2 Flow Rate FiO2 04/02/19 06:00 98.9 74 16 97/64 (75) 97 Room Air I&O- Last 24 Hours up to 6 AM 04/02/19 06:00 Intake Total 4383 ml Output Total 3300 ml Balance 1083 ml Laboratory Data 24H LABS Laboratory Tests 2 04/01/19 08:19: Cord Venous Blood pH 7.168, Cord Venous Blood PCO2 56.4, Cord Venous Blood PO2 17.8, Cord Venous Blood HCO3 20.0, Cord Venous Blood Total CO2 21.7, Cord Venous Base Excess (Actual) -9.4, Cord Venous Base Excess (Standard) 15.5, Cord Venous Blood Oxygen Saturation 29.0 04/02/19 06:25: Nucleated Red Blood Cells % (auto) 0.0 CBC/BMP Laboratory Tests 04/02/19 06:25 JAEL HWANG CNM Apr 02, 2019 07:37
[2019-04-02] MEDS: FERROUS SULFATE 325MG TAB PO SCH (09:17)
[2019-04-02] MEDS: PRENATAL VITAMINS CHEWABLE TABLET PO SCH (09:17)
[2019-04-02] MEDS: DOCUSATE SODIUM 100 MG CAP PO SCH ×2 (09:17→21:17)
[2019-04-03 02:00] VITALS: BP 106/70
[2019-04-03] MEDS: IBUPROFEN 800 MG TAB PO SCH (05:31)
[2019-04-03 06:00] VITALS: BP 117/69
[2019-04-03] MEDS ORDERED: IBUP80TA PO (06:45)
[2019-04-03] MEDS ORDERED: DOCU100C16 PO (06:45)
[2019-04-03] MEDS ORDERED: PERCOCET PO (06:45)
[2019-04-03] MEDS: PRENATAL VITAMINS CHEWABLE TABLET PO SCH (09:52)
[2019-04-03] MEDS: DOCUSATE SODIUM 100 MG CAP PO SCH (09:52)
[2019-04-03] MEDS: FERROUS SULFATE 325MG TAB PO SCH (09:52)
== END 2019-04-03 12:09 | disposition home or self-care (01) | DRG 540 ==
LOC: M LDO 18:03 → M LDI 18:20 → M OBS 04-01 11:02
PROVIDERS: ADMIT Obstetrics & Gynecology; ATTEND Obstetrics & Gynecology
PROC: 10D00Z1 Extraction of Products of Conception, Low, Open Approach (ICD-10-PCS; principal; 2019-04-01 07:22)
DX: O66.41 Failed attempted vaginal birth after previous cesarean delivery (principal); Z3A.39 39 weeks gestation of pregnancy; Z37.0 Single live birth; O99.824 Streptococcus B carrier state complicating childbirth; O32.4XX0 Maternal care for high head at term, not applicable or unspecified; O76 Abnormality in fetal heart rate and rhythm complicating labor and delivery; O34.211 Maternal care for low transverse scar from previous cesarean delivery

== ENCOUNTER → 2019-11-25 | Outpatient (REF) | payer BC ==
[~2019-11-25] MED LIST changes: +DOCU100C16 PO; +IBUP80TA PO; +PERCOCET PO; +PRENTAB9 PO
== END ==
LOC: M SFHCWAGY 09:55
PROVIDERS: ATTEND Advanced Practice Midwife
DX: Z12.4 Encounter for screening for malignant neoplasm of cervix (principal); Z01.419 Encounter for gynecological examination (general) (routine) without abnormal findings

== ENCOUNTER → 2020-12-21 | Outpatient (REF) | payer BC ==
[2020-12-21 13:26] LABS: FOLATE 11.5 NG/ML
== END ==
LOC: M LAB REF 12:07
PROVIDERS: ATTEND Registered Nurse
DX: R53.83 Other fatigue (principal)

== ENCOUNTER → 2021-04-12 | Outpatient (REF) | payer BC | LOC: M PLALAB 13:08 | PROVIDERS: ATTEND Advanced Practice Midwife | DX: Z12.4 Encounter for screening for malignant neoplasm of cervix (principal) ==

== ENCOUNTER → 2022-03-08 | Outpatient (CLI) | payer BC | LOC: M RAD 17:22 | PROVIDERS: ATTEND Physician Assistant Medical | DX: M25.531 Pain in right wrist (principal) ==

== ENCOUNTER → 2022-04-18 | Outpatient (CLI) | payer BC ==
[2022-04-18 15:06] LABS: BASO # 0.1 10^3/uL (0.0-0.2); BASO % 0.9 % (0.0-1.0); EOS # 0.2 10^3/uL (0.0-0.5); EOS % 2.4 % (0.0-3.0); HEMATOCRIT 41.9 % (36.0-47.0); HEMOGLOBIN 13.6 g/dl (12.0-15.5); LYMPH # 1.3 10^3/uL (1.5-5.0); LYMPH % 19.8 % (24.0-44.0); MEAN CORPUSCULAR HEMOGLOBIN 31.2 pg (27.0-33.0); MEAN CORPUSCULAR HGB CONC 32.5 g/dl (32.0-36.5); MEAN CORPUSCULAR VOLUME 96.1 fl (80.0-96.0); MONO # 0.6 10^3/uL (0.0-0.8); MONO % 8.6 % (2.0-8.0); NEUTROPHILS # 4.5 10^3/uL (1.5-8.5); NEUTROPHILS % 68.1 % (36.0-66.0); PLATELET COUNT, AUTOMATED 341 10^3/uL (150-450); RED BLOOD COUNT 4.36 10^6/uL (4.00-5.40); WHITE BLOOD COUNT 6.6 10^3/uL (4.0-10.0)
[2022-04-18 15:29] LABS: ERYTHROCYTE SEDIMENTATION RATE 38 mm/hr (0-20)
[2022-04-18 15:33] LABS: RHEUMATOID FACTOR QUANT < 3.5 IU/ML (<14)
[2022-04-20 12:08] LABS: ANTINUCLEAR ANTIBODIES DIRECT Negative (Negative)
== END ==
LOC: M LAB 13:46
PROVIDERS: ATTEND Orthopaedic Surgery
DX: M25.531 Pain in right wrist (principal)

== ENCOUNTER → 2022-07-11 | Outpatient (REF) | payer BC | LOC: M SFHCWAGY 18:05 | PROVIDERS: ATTEND Advanced Practice Midwife | DX: Z12.4 Encounter for screening for malignant neoplasm of cervix (principal) | CPT/HCPCS: 87624; G0123 ==

== ENCOUNTER → 2023-07-17 | Outpatient (REF) | payer BC ==
[2023-07-19 13:52] LABS: HPV APTIMA Not Detected (Not Detected)
== END ==
LOC: M SFHCWAGY 14:59
PROVIDERS: ATTEND Advanced Practice Midwife
DX: Z12.4 Encounter for screening for malignant neoplasm of cervix (principal); Z77.9 Other contact with and (suspected) exposures hazardous to health
CPT/HCPCS: 87624; G0123